=== PATIENT | female | born 1960 | race Caucasian/White ===

== ENCOUNTER 2021-05-20 16:17 | Outpatient (CLI) | payer OTHER, SELFPAY ==
--- NOTE | ~2021-05-20 | XR_ITS ---
EXAMINATION: XR hip LT min 2V DATE: 05/20/2021 17:01 INDICATION: Polyarthralgia. TECHNIQUE: 3 views of left hip were obtained. COMPARISON: None. FINDINGS: Bone alignment is normal. No fracture. There is mild left hip osteoarthritis. There is an i ntrauterine device in expected position. IMPRESSION: 1. Mild left hip osteoarthritis. Reviewed, dictated and finalized at location A.
--- NOTE | ~2021-05-20 | XR_ITS ---
EXAMINATION: XR hip RT min 2V DATE: 05/20/2021 17:01 INDICATION: Polyarthralgia. TECHNIQUE: 3 views of right hip were obtained. COMPARISON: None. FINDINGS: Bone alignment is normal. No fracture. There is mild right hip osteoarthritis. There is an intrauterine device in expected position. IMPRESSION: 1. Mild right hip osteoarthritis. Reviewed, dictated and finalized at location A.
--- NOTE | ~2021-05-20 | XR_ITS ---
EXAMINATION: XR knee LT 3V DATE: 05/20/2021 17:02 INDICATION: Polyarthralgia. TECHNIQUE: 3 views of left knee were obtained. COMPARISON: None. FINDINGS: Bone alignment is normal. No fracture. There is moderate osteoarthritis of medial and joe lofemoral compartments and mild osteoarthritis of lateral compartment. No knee joint effusion. Calcif ications posterior to the knee may be in a Guerrero's cyst. IMPRESSION: 1. Moderate left knee osteoarthritis. Reviewed, dictated and finalized at location A.
--- NOTE | ~2021-05-20 | XR_ITS ---
EXAMINATION: XR knee RT 3V DATE: 05/20/2021 17:02 INDICATION: Polyarthralgia. TECHNIQUE: 3 views of right knee were obtained. COMPARISON: None. FINDINGS: Bone alignment is normal. No fracture. There is moderate osteoarthritis of medial and joe lofemoral compartments and mild osteoarthritis of lateral compartment. No knee joint effusion. IMPRESSION: 1. Moderate right knee osteoarthritis. Reviewed, dictated and finalized at location A.
== END 2021-05-20 16:18 | disposition home or self-care (01) ==
LOC: ANHIMG 16:30
PROVIDERS: Visit Provider Physician Assistant Medical
DX: M17.0 Bilateral primary osteoarthritis of knee (principal); M16.0 Bilateral primary osteoarthritis of hip
CPT/HCPCS: 73502; 73521; 73562